=== PATIENT | male | born 1970 | race Hispanic/Latino ===

== ENCOUNTER → 2018-08-08 | Outpatient (CLI) | payer OTHER ==
[~2018-08-08] MED LIST: DIATRIZOATE MEGL/DIATRIZOA SOD 30 ML BTL PO ONE; DOX25 PO; ENTYVIO IV; FLAGYL500 MG PO; HYDROXYZINE HCL25 MG PO; IOPAMIDOL 370 MG/ML 200 ML INFUS..BTL INJ ONE; Insulin Detemir SQ; JANUVIA100 MG PO; LEVAQUIN500 MG PO; METFORMIN HCL500 M1 PO; NEXIUM40 MG PO; PEPCID20 MG PO; PREDNISONE20 MG PO; PREDNISONE5 M1; PREDNISONE5 MG PO; PROTONIX40 MG/ML PO; SODIUM CHLORIDE 0.9% 50ML 50 ML ONE
[2018-08-08 15:20] LABS: BLOOD UREA NITROGEN 10 mg/dL (7-26); BUN/CREATININE RATIO 13 (6-25); CREATININE, SERUM 0.75 mg/dL (0.72-1.25); EST GLOMERULAR FILTRATION RATE > 60 ML/MIN (60-)
--- NOTE | 2018-08-08 16:50 | Diagnostic Imaging Report ---
EXAM: CT Abdomen and Pelvis WITH contrast INDICATION: \S\ULCERATIVE COLITIS, interval partial hemicolectomy on 07/21/2018 COMPARISON: CT abdomen and pelvis 05/19/2018 TECHNIQUE: Abdomen and pelvis were scanned utilizing a multidetector helical scanner from the lung base to the pubic symphysis after administration of IV contrast. Coronal and sagittal reformations were obtained. Routine protocol was performed. Scan was performed when during portal venous phase. IV CONTRAST: 100 mL of Isovue-370 ORAL CONTRAST: Gastrografin RADIATION DOSE: Total DLP: 854.1 mGy*cm Estimated effective dose: (DLP x 0.015 x size factor) mSv COMPLICATIONS: None FINDINGS: LINES and TUBES: None. LOWER THORAX: Unremarkable HEPATOBILIARY: No focal hepatic lesions. No biliary ductal dilation. GALLBLADDER: No radio-opaque stones or sludge. No wall thickening. SPLEEN: No splenomegaly. PANCREAS: No focal masses or ductal dilatation. ADRENALS: No adrenal nodules KIDNEYS/URETERS: Kidneys enhance symmetrically. No hydronephrosis. No cystic or solid mass lesions. No stones. GI TRACT: Interval additional partial right hemicolectomy and remote left hemicolectomy. No fluid collections or abscess at the surgical site. Loss of haustras of the sigmoid colon consistent with this patient ulcerative colitis. Right lower quadrant ileostomy. The remaining bowel is normal in caliber and without wall thickening. PELVIC ORGANS/BLADDER: Unremarkable. LYMPH NODES: No lymphadenopathy. VESSELS: Unremarkable. PERITONEUM / RETROPERITONEUM: No free air or fluid. BONES: Unremarkable. SOFT TISSUES: Focal soft tissue thickening and few foci of FLAIR in the anterior abdominal wall at the incisional site, better seen on series 2, image 53. Metallic mesh in place. IMPRESSION: Interval right hemicolectomy with right lower quadrant ileostomy. Remote left hemicolectomy. Remaining bowel is normal in caliber and without wall thickening. No fluid collections or abscess. Signed by: Dr. Venita Aiken M.D. on 08/08/2018 4:47 PM
== END ==
LOC: CT 14:11
PROVIDERS: ATTEND Surgery Surgical Oncology
DX: K51.919 Ulcerative colitis, unspecified with unspecified complications (principal)
CPT/HCPCS: 36415; 74177; 82565; 84520; Q9967